=== PATIENT | female | born 1945 | race Caucasian/White ===

== ENCOUNTER → 2017-12-10 | Emergency (ER) | payer OTHER ==
[~2017-12-10] VITALS: Ht 175.3 cm; Wt 110.2 kg
[~2017-12-10] MED LIST: CLONAZEPAM2 MG; XANAX XR3 MG; ZOLOFT20 MG/1 ML
== END | disposition home or self-care (01) ==
LOC: ER 14:27
DX: K64.5 Perianal venous thrombosis (principal)